=== PATIENT | female | born 1985 | race Caucasian/White ===

== ENCOUNTER 2018-07-18 19:19 | Inpatient (IN) | payer OTHER ==
[~2018-07-18 19:19] MED LIST: Bupivacaine 0.25% HCL 30 ML VIAL ONE; Lidocaine 2% MPF 10 ML AMP (For Epidural Use) ONE; Sodium Chloride 0.9% (PF) 10 ML VIAL ONE
[2018-07-18 20:19] VITALS: BMI 33.7
[2018-07-18] MEDS ORDERED: HYDROcodone/Acetaminophen 5/325 mg Tablet PO PRN ×2 (20:22)
[2018-07-18] MEDS ORDERED: Lidocaine 1% (PF) 30 ML VIAL SC PRN (20:22)
[2018-07-18] MEDS ORDERED: Promethazine HCl 25 MG/ML VIAL IM PRN (20:22)
[2018-07-18] MEDS ORDERED: NS / Oxytocin 40 units/1000ml 1,000 ML IV PRN (20:22)
[2018-07-18] MEDS ORDERED: Ibuprofen 800 MG TAB PO PRN (20:22)
[2018-07-18] MEDS ORDERED: Diphenoxylate HCl/Atropine Tablet PO PRN ×2 (20:22)
[2018-07-18] MEDS ORDERED: Misoprostol 200 MCG TAB PR PRN (20:22)
[2018-07-18] MEDS ORDERED: Acetaminophen 500 MG TAB PO PRN (20:22)
[2018-07-18] MEDS ORDERED: Carboprost 250 MCG/ML AMP IM PRN (20:22)
[2018-07-18] MEDS ORDERED: Ondansetron PF 4 MG/2 ML Vial IVP PRN (20:22)
[2018-07-18] MEDS: Lactated Ringer's 1,000 ML IV SCH (21:29)
[2018-07-18] MEDS: Misoprostol 100 MCG TAB PO SCH (21:37)
[2018-07-18 22:02] LABS: Hemoglobin 11.6 g/dL (12.0-16.0); Mean Corpuscular HGB CONC 35.5 g/dL (32.0-36.0); Mean Corpuscular Volume 95.8 fL (78.0-98.0); Mean Platelet Volume 7.9 fL (7.4-10.4); Platelet Count 313 thou/uL (130-400); RBC Distribution Width 12.7 % (11.5-14.5); Red Blood Cell (RBC) Count 3.42 mill/uL (4.20-5.40); White Blood Cell (WBC) Count 12.9 thou/uL (4.8-10.8)
[2018-07-18 22:40] LABS: Syphilis Antibody Nonreactive (Nonreactive); Syphilis Antibody Index 0.06 S/CO (<1.00 Non-Reactive)
[2018-07-19 00:11] LABS: HBSAg Index 0.24 S/CO (0-0.99); Hep B Surf Ag Non-Reactive S/CO (NonReactive)
[2018-07-19] MEDS: Misoprostol 100 MCG TAB PO SCH ×2 (00:50→14:45)
[2018-07-19] MEDS: Lactated Ringer's 1,000 ML IV SCH ×3 (03:11→09:55)
[2018-07-19] MEDS: Butorphanol Tartrate 1 MG/ML VIAL SLOW IVP PRN ×2 (04:31→12:25)
[2018-07-19] MEDS ORDERED: Fentanyl 4 mcg/Bup 0.1% Cadd 100 ML ONE (04:49)
[2018-07-19] MEDS ORDERED: Naloxone HCl 0.4 mg/ml Vial IVP PRN ×2 (06:21)
[2018-07-19] MEDS ORDERED: Lactated Ringer's 500 ML IV PRN (06:21)
[2018-07-19] MEDS ORDERED: ePHEDrine/0.9% NaCl/PF SYRINGE 50 mg/10 ml SLOW IVP PRN (06:21)
[2018-07-19] MEDS ORDERED: Ondansetron PF 4 MG/2 ML Vial IVP PRN ×2 (06:21→15:30)
[2018-07-19] MEDS ORDERED: Eucerin (Mineral Oil/Petrolatum,White) 30 gm Jar TOP PRN (06:21)
[2018-07-19] MEDS ORDERED: diphenhydrAMINE 50 MG/ML VIAL IVP PRN (06:21)
[2018-07-19] MEDS ORDERED: Acetaminophen 325 MG TAB PO PRN (06:21)
[2018-07-19] MEDS ORDERED: Promethazine HCl 25 MG/ML VIAL IM PRN (06:21)
[2018-07-19] MEDS ORDERED: Fentanyl 4 mcg/Bupivacaine 0.1% Cassette 100 ML EPIDURAL SCH (06:30)
[2018-07-19] MEDS ORDERED: Communication Order-Pharmacy FS SCH (06:30)
--- NOTE | 2018-07-19 09:30 | PDOC.LDHP ---
Labor and Delivery H&P Chief complaint: loss of fluid HPI: Pt is a 32yo @ 38.4 weeks today who presented last night with PROM. Was given two doses of cytotec overnight for IOL. Current gestational age (weeks): 38 Grav: 1 Para: 0 Current complications: none Abnormal US findings: No Current medications: pre- vitamins Previous surgical history: none Allergies/Adverse Reactions: Allergies Allergy/AdvReac Type Severity Reaction Status Date / Time clindamycin Allergy Intermediate Hives Verified 07/18/18 20:05 Social history: none - Physical Exam Vital signs reviewed and normal: yes General: NAD Heart: RRR Lungs: CTAB Abdomen: gravid Extremeties: no edema FHT: category 1 - Vaginal Exam cm dilated: 4 Effacement: 90% Station: 0 - OB Labs Blood type: O RH: positive Antibody Screen: negative HIV: negative RPR: negative HEPSAg: negative GBS: negative Urine drug screen: not done - Assessment L&D Assessment: term rupture in membranes - Plan Plan: admit to L&D, cervical ripening, labor augmentation if indicated, informed consent obtained, anesthesia consult for pain management -: A/P: Admit for pROM @ term, sp cytotec and transitioning to active labor. Continue plan of care, reassuring status.
[2018-07-19] MEDS ORDERED: NS w/ Oxytocin 10 units 0 ML ONE ×3 (11:16→11:30)
[2018-07-19] MEDS ORDERED: Bupivacaine 0.25% HCL 30 ML VIAL ONE (11:56)
--- NOTE | 2018-07-19 13:09 | PDOC.LDPN ---
Labor & Delivery Progress Note - Subjective Subjective: painful contractions - Objective Abnormal vital signs: T 100.1 General: resting Uterine fundus: non tender Dilation: 10 Effacement: 100% Station: 1+ FHT: category 1 [place] contractions every: 3-4 - Assessment (1) 38 weeks gestation of Code(s): Z3A.38 - 38 WEEKS GESTATION OF Current Visit: Yes Status : Acute (2) Active labor at term Code(s): [id number] - Current Visit: Yes Status: Acute Plan: continue plan of care, other (transition to 2nd stage)
--- NOTE | 2018-07-19 14:01 | PDOC.OPDEL ---
OB Operative/Delivery Note Delivery Dr/Surgeon: Micah Pre-Delivery Diagnosis: active labor (after cytotec IOL for PROM) Procedure/Post Delivery Dx: spontaneous vaginal delivery Weeks gestation: 38 - Findings A Sex: male - 1 min: 7 - 5 min: 9 - Additional Findings/Plan Placenta delivered: spontaneous Repaired Obstetrical Laceration: 2nd degree Estimated blood loss: 300ml Compilations/Other Findings: loose nuchal reduced prior to delivery of the body T100.7 immediately after delivery Post delivery plan: routine recovery (will watch T closely, with first fever T100.7 noted immediately after deilvery, will start abx if repeat is elevated)
[2018-07-19 14:05] LABS: Actual Bicarbonate (HCO3v) 20 mEq/L (22-28); Base Excess -5.8 mEq/L (-2.0 to +3.0); pH (Cord, venous) 7.32 (7.32-7.43)
[2018-07-19] MEDS ORDERED: Bisacodyl 10 MG SUPP PR PRN (15:30)
[2018-07-19] MEDS ORDERED: Benzocaine/Menthol 20-0.5% 60 ML CAN TOP PRN (15:30)
[2018-07-19] MEDS ORDERED: diphenhydrAMINE 25 MG CAP PO PRN (15:30)
[2018-07-19] MEDS ORDERED: NS / Oxytocin 40 units/1000ml 1,000 ML IV SCH (15:30)
[2018-07-19] MEDS ORDERED: Milk Of Magnesia 30 ML UDCUP PO PRN (15:30)
[2018-07-19] MEDS ORDERED: Adacel (T-DAP) 0.5 ML SYRINGE IM ONE (15:30)
[2018-07-19] MEDS ORDERED: Lanolin Ointment 7 GM TUBE TOP PRN (15:30)
[2018-07-19] MEDS: Ibuprofen 800 MG TAB PO SCH (16:14)
[2018-07-19] MEDS: Ferrous Sulfate 325 MG TAB PO SCH (18:03)
[2018-07-19] MEDS: Docusate Calcium (SURFAK) 240 MG CAP PO SCH (21:51)
[2018-07-19] MEDS: HYDROcodone/Acetaminophen 5/325 mg Tablet PO PRN (21:54)
[2018-07-20 06:06] LABS: Hemoglobin 8.9 g/dL (12.0-16.0); Mean Corpuscular HGB CONC 34.1 g/dL (32.0-36.0); Mean Corpuscular Hemoglobin 33.8 pg (27.0-31.0); Mean Corpuscular Volume 99.2 fL (78.0-98.0); Mean Platelet Volume 7.7 fL (7.4-10.4); Platelet Count 252 thou/uL (130-400); RBC Distribution Width 12.9 % (11.5-14.5); Red Blood Cell (RBC) Count 2.63 mill/uL (4.20-5.40); White Blood Cell (WBC) Count 16.6 thou/uL (4.8-10.8)
[2018-07-20] MEDS: Ibuprofen 800 MG TAB PO SCH ×3 (06:36→21:01)
[2018-07-20] MEDS: Docusate Calcium (SURFAK) 240 MG CAP PO SCH ×2 (08:52→21:02)
[2018-07-20] MEDS: Prenatal Vitamin 1 TAB PO SCH ×2 (08:52→08:56)
[2018-07-20] MEDS: Ferrous Sulfate 325 MG TAB PO SCH ×2 (08:52→17:13)
[2018-07-20] MEDS: HYDROcodone/Acetaminophen 5/325 mg Tablet PO PRN ×3 (08:53→21:02)
--- NOTE | 2018-07-20 10:55 | PDOC.PP ---
Post Progress Note Post Day #: 1 Subjective: only concern is MILLER, mild, not relieved w position change PO intake tolerated: yes Flatus: yes Ambulation: yes Vital Signs (12 hours) Temp Pulse Resp BP Pulse Ox 07/20/18 08:19 98.3 F 85 20 92/50 L 99 07/20/18 03:35 98.3 F 82 16 92/51 L 07/19/18 23:35 98.5 F 86 17 94/52 L Weight Weight 203 lb - Physical Examination General: NAD Abdominal: no distention Fundus firm & at: below umb Skin: no rash Neurological: no gross focal deficits Psychiatric: A&Ox3, normal affect Result Diagrams: 07/20/18 05:36 Additional Labs: Post Labs Blood Type O POSITIVE 07/18/18 21:29 Hep Bs Antigen Non-Reactive S/CO (NonReactive) 07/18/18 21:29 (1) 38 weeks gestation of Code(s): Z3A.38 - 38 WEEKS GESTATION OF Status: Acute (2) Active labor at term Code(s): QTS0195 - Status: Acute - Assessment/Plan PPD1 sp , doing well w exception of MILLER, do not suspect epidural related at this time but will continue to monitor, encouraged rest and hydration.
[2018-07-21] MEDS ORDERED: Butorphanol Tartrate 1 MG/ML VIAL SLOW IVP PRN (04:54)
[2018-07-21] MEDS ORDERED: Sodium Chloride 0.9% 10 ML ONE ×2 (05:29→11:45)
[2018-07-21] MEDS: Sodium Chloride 0.9% 10 ML ONE ×2 (06:08→11:25)
[2018-07-21] MEDS: Ibuprofen 800 MG TAB PO SCH ×3 (07:11→20:51)
[2018-07-21] MEDS: SUMAtriptan Succinate 50 MG TAB PO PRN (08:28)
[2018-07-21] MEDS: Prenatal Vitamin 1 TAB PO SCH ×2 (10:07→10:08)
[2018-07-21] MEDS: Ferrous Sulfate 325 MG TAB PO SCH ×2 (10:07→17:55)
[2018-07-21] MEDS: Docusate Calcium (SURFAK) 240 MG CAP PO SCH ×2 (10:07→20:18)
--- NOTE | 2018-07-21 14:18 | PDOC.PP ---
Post Progress Note Post Day #: 2 Subjective: MILLER persisted overnight, some resolution with Imitrex this AM, declines anesthesia consult for possible blood patch, would like to go home PO intake tolerated: yes Flatus: yes Ambulation: yes Vital Signs (12 hours) Temp Pulse Resp BP Pulse Ox 07/21/18 08:11 98.2 F 78 20 110/59 L 96 Weight Weight 203 lb - Physical Examination General: NAD Respiratory: non-labored breathing Abdominal: no distention Fundus firm & at: below umn Neurological: no gross focal deficits Psychiatric: A&Ox3 Result Diagrams: 07/20/18 05:36 Additional Labs: Post Labs Blood Type O POSITIVE 07/18/18 21:29 Hep Bs Antigen Non-Reactive S/CO (NonReactive) 07/18/18 21:29 (1) 38 weeks gestation of Code(s): Z3A.38 - 38 WEEKS GESTATION OF Status: Acute (2) Active labor at term Code(s): OJO0673 - Status: Acute (3) Migraine headache Code(s): G43.909 - MIGRAINE, UNSP, NOT INTRACTABLE, WITHOUT STATUS MIGRAINOSUS Status: Acute - Assessment/Plan PPD2, sp , improvement in MILLER w Imitrex, request DC home.
[2018-07-21] MEDS: HYDROcodone/Acetaminophen 5/325 mg Tablet PO PRN (21:06)
--- NOTE | 2018-07-22 00:31 | PDOC.PP ---
Post Progress Note Post Day #: 3 Subjective: MILLER better after medical therapy PO intake tolerated: yes Flatus: yes Ambulation: yes Vital Signs (12 hours) Temp Pulse Resp BP BP Pulse Ox 07/21/18 20:10 99 07/21/18 19:55 99.0 F 74 16 120/60 99 07/21/18 17:20 98.8 F 98 16 120/70 99 Weight Weight 203 lb BPs reviewed for last 24 hours - Physical Examination Cardiovascular: no m/r/g Respiratory: clear to auscultation bilaterally Abdominal: + bowel sounds Extremities: negative homans (B) Neurological: no gross focal deficits Psychiatric: A&Ox3, normal affect Result Diagrams: 07/20/18 05:36 Additional Labs: Post Labs Blood Type O POSITIVE 07/18/18 21:29 Hep Bs Antigen Non-Reactive S/CO (NonReactive) 07/18/18 21:29 (1) Vaginal delivery Code(s): O80 - ENCOUNTER FOR FULL-TERM UNCOMPLICATED DELIVERY Status: Acute - Assessment/Plan PPD3 today; dsch was held yesterday on PPD2 as baby needed baby bili lights. Planned dsch today, in the AM with Bed and Breakfast if needed if baby stay is extended. i have writen a RX for motrin in the chart. F/U would be in 2- [address] schuler OB Discharge summary completed by me in the chart. Final DX: 1. vaginal Delivery 2. HX Migraines 3. term delivery 4. Second degree laceration
[2018-07-22] MEDS: Ibuprofen 800 MG TAB PO SCH (06:10)
[2018-07-22 08:48] VITALS: BP 117/69; TEMP 98.1
[2018-07-22] MEDS: Docusate Calcium (SURFAK) 240 MG CAP PO SCH (09:44)
[2018-07-22] MEDS: Prenatal Vitamin 1 TAB PO SCH ×2 (09:44)
[2018-07-22] MEDS: Ferrous Sulfate 325 MG TAB PO SCH (09:44)
[2018-07-22] MEDS: SUMAtriptan Succinate 50 MG TAB PO PRN (10:13)
== END 2018-07-22 13:25 | disposition home or self-care (01) | DRG 807 ==
LOC: L&D/OP 19:19 → L&D 20:28 → 3SW 07-19 17:39
PROVIDERS: ADMIT Obstetrics & Gynecology; ATTEND Obstetrics & Gynecology
PROC: 10E0XZZ Delivery of Products of Conception, External Approach (ICD-10-PCS; principal; 2018-07-19)
PROC: 0KQM0ZZ Repair Perineum Muscle, Open Approach (ICD-10-PCS; 2018-07-19)
PROC: 3E033VJ Introduction of Other Hormone into Peripheral Vein, Percutaneous Approach (ICD-10-PCS; 2018-07-19)
DX: O42.90 Premature rupture of membranes, unspecified as to length of time between rupture and onset of labor, unspecified weeks of gestation (principal); Z37.0 Single live birth; Z3A.39 39 weeks gestation of pregnancy; O69.81X0 Labor and delivery complicated by cord around neck, without compression, not applicable or unspecified; O70.1 Second degree perineal laceration during delivery; Z88.1 Allergy status to other antibiotic agents; O75.89 Other specified complications of labor and delivery; G43.909 Migraine, unspecified, not intractable, without status migrainosus
CPT/HCPCS: 36415; 51702; 82805; 85027; 86780; 86850; 86900; 86901; 87340; 90715; 99285; J0595; J2001; J2405; S0020